=== PATIENT | male | born 1995 | race Two or more races ===

== ENCOUNTER 2016-04-30 10:08 | Emergency (ER) | payer OTHER ==
[~2016-04-30] VITALS: Ht 180.3 cm; Wt 68.0 kg
[2016-04-30] MEDS ORDERED: KETOROLAC TROMETH 60MG/2ML VIAL IM ONE (11:00)
[2016-04-30] MEDS ORDERED: METHOCARBAMOL 500 MG TAB PO ONE (11:00)
[2016-04-30 12:00] LABS: Basophils # (auto) 0 uL; Basophils % (auto) 0.4 % (0.0-2.0); Eosinophils # (auto) 0.2 uL; Eosinophils % (auto) 2.7 % (0.0-7.0); Hematocrit 47.2 % (41.0-53.0); Hemoglobin 15.4 g/dL (13.5-17.5); Lymphocytes # (auto) 1.8 uL; Lymphocytes % (auto) 23.6 % (10.0-50.0); Mean Corpuscular Hemoglobin 28.8 pg (28.0-32.0); Mean Corpuscular Hgb Conc. 32.6 g/dL (32.0-36.0); Mean Corpuscular Volume 88.3 fL (80.0-100.0); Mean Platelet Volume 7.6 fL (7.4-10.4); Monocytes # (auto) 0.4 uL; Monocytes % (auto) 5.7 % (0.0-12.0); Neutrophils # (auto) 5.2 uL; Neutrophils % (auto) 67.6 % (37.0-80.0); Platelet Count (auto) 431 10^3/uL (140-450); Red Cell Distribution Width 13.1 % (11.6-16.0); White Blood Cell 7.7 10^3/uL (4.4-10.8)
[2016-04-30 12:21] LABS: Albumin 4.5 g/dL (3.4-5.0); BUN/Creatinine Ratio 7.9; Bilirubin, Total 1.7 mg/dL (0.2-1.0); Calcium 9.2 mg/dL (8.5-10.1); Potassium 4.2 mmol/L (3.5-5.1); Total Protein 8.2 g/dL (6.4-8.2)
[2016-04-30 12:25] VITALS: BP 153/85
== END 2016-04-30 13:18 | disposition home or self-care (01) ==
LOC: ER 10:20
DX: S32.029A Unspecified fracture of second lumbar vertebra, initial encounter for closed fracture (principal); S32.039A Unspecified fracture of third lumbar vertebra, initial encounter for closed fracture; S32.049A Unspecified fracture of fourth lumbar vertebra, initial encounter for closed fracture; V79.59XA Passenger on bus injured in collision with other motor vehicles in traffic accident, initial encounter; Y93.89 Activity, other specified; Y99.9 Unspecified external cause status; Y92.89 Other specified places as the place of occurrence of the external cause
CPT/HCPCS: 36415; 72131; 80053; 85025; 96372; 99285; J1885

== ENCOUNTER 2016-05-03 16:08 | Emergency (ER) | payer OTHER ==
[~2016-05-03] VITALS: Ht 180.3 cm; Wt 68.0 kg
[2016-05-03 20:18] VITALS: BP 136/83
== END 2016-05-03 20:26 | disposition home or self-care (01) ==
LOC: ER 16:15
DX: L03.011 Cellulitis of right finger (principal)
CPT/HCPCS: 26010

== ENCOUNTER 2020-10-05 07:40 | Emergency (ER) | payer SELFPAY ==
[~2020-10-05] VITALS: Ht 180.3 cm; Wt 59.0 kg
[2020-10-05 07:41] VITALS: BP 118/83
[2020-10-05] MEDS ORDERED: IBUPROFEN 600 MG TAB PO ONE (08:45)
[2020-10-05] MEDS ORDERED: cefTRIAXone SOD 1,000 MG VL IM ONE (08:45)
== END 2020-10-05 08:52 | disposition home or self-care (01) ==
LOC: ER 07:40
DX: J03.90 Acute tonsillitis, unspecified (principal); K04.7 Periapical abscess without sinus
CPT/HCPCS: 96372; 99283; J0696